=== PATIENT | female | born 2000 | race Caucasian/White ===

== ENCOUNTER 2019-02-07 09:57 | Outpatient (CLI) | payer BC ==
--- NOTE | 2019-02-07 10:57 | ULT ---
Abdominal Ultrasound: Multiple grayscale images of right upper quadrant obtained according to protocol. INDICATION: Abdominal bloating, gastroesophageal reflux FINDINGS: Liver: Normal Gallbladder: There are subtle, low-level echoes that may relate to sludge and/or nonshadowing choleli thiasis Gallbladder wall: Normal. Peraza's Sign: Negative Common bile duct is normal. Ascites: None Spleen: Unremarkable. Pancreas: Partially obscured by bowel content, limiting assessment. Kidneys: No acute abnormalities. Aorta/IVC: No acute process. IMPRESSION: Low-level echoes of gallbladder lumen that may represent sludge and/or gravel-like cholelithiasis.
== END 2019-02-07 09:58 | disposition home or self-care (01) ==
LOC: SCSULT 09:57
PROVIDERS: ATTEND Internal Medicine Gastroenterology
DX: K21.9 Gastro-esophageal reflux disease without esophagitis (principal); R14.0 Abdominal distension (gaseous); F43.9 Reaction to severe stress, unspecified
CPT/HCPCS: 76700